=== PATIENT | male | born 1985 | race Caucasian/White ===

== ENCOUNTER 2021-05-31 09:37 | Day surgery (SDC) | payer BC ==
[~2021-05-31 09:37] MED LIST: Lactated Ringers 1,000 ML IV SCH
[2021-05-31] MEDS ORDERED: Propofol 200 MG/20 ML SDV ONE (10:05)
[2021-05-31] MEDS ORDERED: fentaNYL 100 MCG/2 ML SDV ONE (10:05)
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
--- NOTE | 2021-05-31 11:13 | PCM.OPNOTE ---
- General Post-Op/Procedure Note Date of Surgery/Procedure: 05/31/21 Operative Procedure(s): Esophagogastroduodenoscopy with antral and proximal gastric biopsies Pre Op Diagnosis: Atypical chest pain. Progressive heartburn. Post-Op Diagnosis: Mild chronic gastritis. Proximal gastric ulcer. Anesthesia Technique: MAC (ASA III) Primary Surgeon: Jose F Calix Loader Technician: Kaya Amos Condition: Good Free Text/Narrative:: DICTATION [id number] CPT CODE [id number]
[2021-05-31] MEDS ORDERED: Lactated Ringers 1,000 ML IV SCH (11:15)
--- NOTE | 2021-05-31 11:26 | PCM.POSTAN ---
POST ANESTHESIA ASSESSMENT - MENTAL STATUS Mental Status: Somnolent - VITAL SIGNS Vital Signs: Last Vital Signs Temp 96.8 F L 05/31/21 09:40 Pulse 70 05/31/21 09:40 Resp 16 05/31/21 09:40 BP 101/79 05/31/21 09:40 Pulse Ox 97 05/31/21 09:40 - RESPIRATORY Respiratory Status: Respiratory Rate WNL, Airway Patent, O2 Saturation Stable, Supplemental Oxygen - CARDIOVASCULAR CV Status: Pulse Rate WNL, Blood Pressure Stable - GASTROINTESTINAL GI Status: No Symptoms - POST OP HYDRATION Hydration Status: Adequate & Stable
--- NOTE | 2021-05-31 11:30 | PCM48HPAN ---
Post Anesthesia Note - EVALUATION WITHIN 48HRS OF ANESTHETIC Vital Signs in Normal Range: Yes Patient Participated in Evaluation: Yes Respiratory Function Stable: Yes Airway Patent: Yes Cardiovascular Function Stable: Yes Hydration Status Stable: Yes Pain Control Satisfactory: Yes Nausea and Vomiting Control Satisfactory: Yes Mental Status Recovered: Yes Vital Signs: Last Vital Signs Temp 96.8 F L 05/31/21 09:40 Pulse 70 05/31/21 09:40 Resp 16 05/31/21 09:40 BP 101/79 05/31/21 09:40 Pulse Ox 97 05/31/21 09:40 - COMMENTS/OBSERVATIONS Free Text/Narrative:: Pt doing well post-op. VSS. No apparent anesthetic complications. Dr. Mika Gamez
--- NOTE | 2021-05-31 16:04 | OR ---
SURGEON: Jose F Calix M.D. DATE OF PROCEDURE: 05/31/2021 OPERATION PERFORMED: Esophagogastroduodenoscopy with antral and proximal gastric biopsy. PRIMARY SURGEON: Jose F Calix M.D. TWIST MAKER: assistant baseball coach: Kyaa Amos NP student. ANESTHESIA: MAC. ASA CLASSIFICATION: III. PREOPERATIVE DIAGNOSES: 1. Atypical chest pain. 2. Heartburn. POSTOPERATIVE DIAGNOSES: 1. Mild chronic gastritis. 2. Proximal gastric ulcer. DESCRIPTION OF PROCEDURE: The patient was taken to the endoscopy room, positioned on the endoscopy table in the left lateral decubitus position. Time-out was called for appropriate identification of the patient and procedure. The bite block was placed between the patient's teeth. The gastroscope was inserted through the bite block and advanced without difficulty through the esophagus and stomach into the duodenum where examination was carried out in a retrograde fashion. The duodenum showed no acute inflammatory changes or ulcerations. Stomach shows a [id number] chronic gastritis. Antral biopsies were obtained to look for the presence of Helicobacter pylori. The gastroscope was then retroflexed to visualize the cardia of the stomach where a superficial ulcer was noted. I was able to with the scope in a retroflexed position withdraw the scope to the point that we were adjacent to the ulcer, and I could biopsy this area separately. I did not see any heaped up margins or anything suggestive at this time of a malignancy. Nevertheless, multiple biopsies of the proximal gastric ulcer were obtained. The GE junction was well defined and showed no acute inflammatory changes or ulcerations. No significant hiatal hernia was noted. The gastroscope was then straightened and slowly withdrawn. The esophagus itself demonstrated good contractility. No mid or proximal lesions were identified. The vocal cords were briefly visualized as the scope was withdrawn and noted to move symmetrically. No vocal cord lesions were identified. The gastroscope was then removed with the patient having tolerated the procedure well. He was taken to recovery room in stable condition. BARBARA / GLORIA /[id number]
== END 2021-05-31 11:55 | disposition home or self-care (01) ==
LOC: MW.SDS 09:37
PROVIDERS: ATTEND Surgery
DX: K29.50 Unspecified chronic gastritis without bleeding (principal); K25.9 Gastric ulcer, unspecified as acute or chronic, without hemorrhage or perforation; Z87.891 Personal history of nicotine dependence; Z98.890 Other specified postprocedural states
CPT/HCPCS: 43239; 88305; 88342; J2704; J3010; J7120; 00731